=== PATIENT | female | born 1965 | race Caucasian/White ===

== ENCOUNTER 2016-11-05 08:19 | Emergency (ER) | payer BC ==
[2016-11-05 09:01] VITALS: BP 142/64
[2016-11-05] MEDS ORDERED: Ciprofloxacin TAB* 500 MG PO ONE (09:59)
--- NOTE | 2016-11-05 10:04 | UC ---
Complaint Female HPI - HPI Summary HPI Summary: dysuria, inc frequency. Getting frequent UTIs since menopause. Has polycystic kidneys. No fever or vomiting. - History Of Current Complaint Chief Complaint: UCGU Stated Complaint: URINARY Time Seen by Provider: 11/05/16 09:53 Hx Obtained From: Patient Hx Last Menstrual Period: 2007 Onset/Duration: Sudden Onset, Lasting Days - 2 Timing: Constant Severity Initially: Mild Severity Currently: Moderate Character: Burning, Cramping Aggravating Factor(s): Urination Alleviating Factor(s): Nothing - Risk Factors Ectopic Risk Factor: Negative Ovarian Torsion Risk Factor: Negative - Allergies/Home Medications Allergies/Adverse Reactions: Allergies Allergy/AdvReac Type Severity Reaction Status Date / Time Acetaminophen [From Percocet] Allergy Vomiting Verified 11/05/16 09:02 Codeine Allergy Vomiting Verified 11/05/16 09:02 Oxycodone [From Percocet] Allergy Vomiting Verified 11/05/16 09:02 Sulfa Antibiotics Allergy Difficulty Verified 11/05/16 09:02 Breathing Home Medications: Home Medications Cranberry-Vitamin C-Probiotic [Azo Cranberry 250-30 mg] 1 tab PO Q4HR PRN [History Confirmed 11/05/16] Esomeprazole Magnesium [Nexium] 20 mg PO QAM 11/05/16 [History Confirmed ] Ibuprofen TAB* [Motrin TAB* 800 MG] 800 mg PO Q6H PRN 11/05/16 [History Confirmed 11/05/16] SUMAtriptan TAB* [Imitrex TAB*] 12.5 mg PO SEE INSTRUCTIONS PRN 11/05/16 [ History Confirmed 11/05/16] Venlafaxine TAB (NF) [Effexor TAB (NF)] 12.5 mg PO QPM 11/05/16 [History Confirmed 11/05/16] PMH/Surg Hx/FS Hx/Imm Hx Previously Healthy: Yes - Surgical History Surgical History: Yes Surgery Procedure, Year, and Place: , hysterectomy, left hand - Family History Known Family History: Positive: Hypertension - Social History Occupation: Employed Full-time Lives: With Family Alcohol Use: None Substance Use Type: None Smoking Status (MU): Former Smoker Review of Systems Constitutional: Fatigue Skin: Negative Eyes: Negative ENT: Negative Respiratory: Negative Cardiovascular: Negative Gastrointestinal: Negative Genitourinary: Dysuria, Frequency, Urgency Motor: Negative Neurovascular: Negative Musculoskeletal: Negative Neurological: Negative Psychological: Negative All Other Systems Reviewed And Are Negative: Yes Physical Exam Triage Information Reviewed: Yes Appearance: Well-Appearing, No Pain Distress, Well-Nourished Vital Signs: Initial Vital Signs Temp 98.3 F 11/05/16 08:51 Pulse 63 11/05/16 08:51 Resp 18 11/05/16 08:51 BP 142/64 11/05/16 08:51 Vital Signs Reviewed: Yes Eye Exam: Normal Neck exam: Normal Respiratory Exam: Normal Cardiovascular Exam: Normal Musculoskeletal Exam: Normal Neurological Exam: Normal Psychological Exam: Normal Skin Exam: Normal Diagnostics - Laboratory Diagnostic Studies Completed/Ordered: U/A dip pos nitrite Complaint Female Dx - Differential Dx/Diagnosis Differential Diagnosis/HQI/PQRI: Urinary Tract Infection Provider Diagnoses: UTI Discharge - Discharge Plan Condition: Stable Disposition: HOME Prescriptions: Ciprofloxacin HCl [Cipro] 500 mg PO BID #20 tab Patient Education Materials: Urinary Tract Infection in Women (ED) Referrals: Non Staff,Doctor [Primary Care Provider] -
== END 2016-11-05 10:06 | disposition home or self-care (01) ==
LOC: UCCORT 08:19
DX: N39.0 Urinary tract infection, site not specified (principal); Z87.891 Personal history of nicotine dependence; Z88.2 Allergy status to sulfonamides; Z88.5 Allergy status to narcotic agent
CPT/HCPCS: 87086; 99202; A9270-GY; G0463